=== PATIENT | male | born 2000 | race African-American/Black ===

== ENCOUNTER 2023-12-11 02:40 | Emergency (ER) | payer MEDICAID, OTHER ==
[~2023-12-11] VITALS: Ht 188 cm; Wt 75.6 kg
[2023-12-11 02:40] VITALS: TEMP 98.1
[2023-12-11 02:50] VITALS: BP 158/78; PULSE 108; RESP 20; O2SAT 96
== END 2023-12-11 08:37 | disposition left against medical advice (07) ==
LOC: ER 02:40
DX: T65.893A Toxic effect of other specified substances, assault, initial encounter (principal); H57.13 Ocular pain, bilateral; Z53.21 Procedure and treatment not carried out due to patient leaving prior to being seen by health care provider; Y92.89 Other specified places as the place of occurrence of the external cause